=== PATIENT | female | born 1975 | race Two or more races ===

== ENCOUNTER 2025-07-03 08:42 | Outpatient (RCR) | payer MEDICAID, SELFPAY ==
[2025-07-03 09:28] LABS: HCG Qualitative,Urine Negative
--- NOTE | 2025-07-03 10:00 | XR_ITS ---
Examination: MILEY, hepatobiliary radioisotope scan Gallbladder ejection fraction study. Date and time of exam: July 03, 2025 0951 hours INDICATIONS: Nausea vomiting epigastric pain and diarrhea heartburn beginning 2 years ago Technique: 5.8 mCi of 99M Hepatolite administered. Serial imaging then obtained from immediate through 60 minutes. 1.3 mcg selective catheter Kinevac administered for gallbladder ejection fraction study. Findings: Radioisotope activity within the liver is reasonably homogenous. Gallbladder, common bile duct small bowel activity noted Impression: Gallbladder activity Gallbladder ejection fraction 13%, abnormal, normal greater than 35%
== END 2025-07-08 23:59 | disposition home or self-care (01) ==
LOC: SNUC 08:42
PROVIDERS: PCP Family Medicine; Referring Provider Internal Medicine Gastroenterology; Visit Provider Internal Medicine Gastroenterology
DX: R93.2 Abnormal findings on diagnostic imaging of liver and biliary tract (principal)
CPT/HCPCS: 78227; 81025; A9537; J2805